=== PATIENT | female | born 1975 | race Caucasian/White ===

== ENCOUNTER 2021-02-07 16:49 | Observation (INO) ==
[2021-02-07] MEDS ORDERED: Melatonin 3 MG TABLET PO PRN (23:48)
[2021-02-07] MEDS ORDERED: Naloxone 0.4 MG/ML INJ IVP PRN (23:48)
[2021-02-08] MEDS: 0.9 % Sodium Chloride 1,000 ML IVC SCH ×2 (06:05→14:39)
[2021-02-08 06:59] LABS: Basophils % 0.3 %; Eosinophils # 0.1 K/mcL (0.0-0.6); Eosinophils % 0.7 %; Hematocrit 36.3 % (35.3-44.9); Hemoglobin 11.2 g/dL (11.5-15.4); Immature Granulocytes % 0.9 % (0-4); Lymphocytes # 2.1 K/mcL (0.6-4.6); Lymphocytes % 17.7 %; Mean Corpuscular HGB Conc 30.9 g/dL (31.6-35.5); Mean Corpuscular Hemoglobin 27.4 pg (28.0-33.3); Mean Corpuscular Volume 88.8 fL (83.0-100.0); Mean Platelet Volume 8.7 fL (9.4-12.4); Monocytes # 0.6 K/mcL (0.0-1.3); Monocytes % 5.1 %; Neutrophils # 9.1 K/mcL (1.6-8.9); Platelet Count 452 K/mcL (140-400); Red Blood Count 4.09 M/mcL (3.82-4.97); Red Cell Distribution Width 15.4 % (11.5-14.5); Segmented Neutrophils % 75.3 %; White Blood Count 12.1 K/mcL (4.3-11.1)
[2021-02-08 07:15] LABS: Alanine Aminotransferase 5 Units/L (7-52); Albumin 3.8 g/dL (3.5-5.7); Albumin/Globulin Ratio 1.1 (1.1-2.2); Alkaline Phosphatase 69 Units/L (34-104); Aspartate Amino Transferase 7 Units/L (13-39); BUN/Creatinine Ratio 27 (6-26); Bilirubin,Total 0.3 mg/dL (0.3-1.0); Blood Urea Nitrogen 12 mg/dL (6-20); Calcium 9.7 mg/dL (8.6-10.3); Carbon Dioxide 21 mEq/L (23-29); Chloride 104 mEq/L (98-107); Globulin 3.6 g/dL (2.4-3.5); Glucose 89 mg/dL (70-105); Magnesium 1.9 mg/dL (1.6-2.6); Osmolality,Calculated 279 (280-300); Phosphorous 4.4 mg/dL (2.7-4.5); Potassium 4.2 mEq/L (3.5-5.1); Sodium 135 mEq/L (136-145); Total Protein 7.4 g/dL (6.4-8.9); eGFR For African Americans > 60 (> 60); eGFR For Non-African Americans > 60 (> 60)
[2021-02-08] MEDS ORDERED: *HR* HYDROmorphone (PF) 1 MG/ML SYRINGE IVP PRN (12:24)
[2021-02-08] MEDS: Nicotine 21 MG PATCH.TD24 TD SCH (12:54)
[2021-02-08 15:22] LABS: Influenza A PCR Negative (Negative); Influenza B PCR Negative (Negative); Resp. Syncytial Virus PCR Negative (Negative)
[2021-02-08] MEDS: Ondansetron 4 MG/2 ML VIAL IVP PRN (15:44)
[2021-02-08 15:50] LABS: SARS-CoV-2 by PCR (In House) Negative (Negative)
[2021-02-08] MEDS: Pantoprazole 40 MG VIAL IVP SCH (18:17)
[2021-02-08] MEDS: *HR* HYDROmorphone (PF) 1 MG/ML SYRINGE IVP PRN ×2 (18:18→23:45)
[2021-02-08] MEDS: MetroNIDAZOLE 500 MG/100 ML 500 MG/100 ML BAG IVPB SCH (23:28)
[2021-02-08] MEDS: MethylPREDNISolone 40 MG/ML VIAL IVP SCH (23:29)
[2021-02-09] MEDS ORDERED: MethylPREDNISolone 40 MG/ML VIAL IM SCH
[2021-02-09] MEDS: Ondansetron 4 MG/2 ML VIAL IVP PRN (01:10)
[2021-02-09] MEDS: 0.9 % Sodium Chloride 1,000 ML IVC SCH ×2 (01:11→14:16)
[2021-02-09] MEDS: Pantoprazole 40 MG VIAL IVP SCH ×2 (05:13→17:36)
[2021-02-09 05:32] LABS: Hematocrit 33.1 % (35.3-44.9); Hemoglobin 10.3 g/dL (11.5-15.4); Mean Corpuscular HGB Conc 31.1 g/dL (31.6-35.5); Mean Corpuscular Hemoglobin 27.7 pg (28.0-33.3); Mean Platelet Volume 8.5 fL (9.4-12.4); Platelet Count 431 K/mcL (140-400); Red Blood Count 3.72 M/mcL (3.82-4.97); Red Cell Distribution Width 15.1 % (11.5-14.5); White Blood Count 9.9 K/mcL (4.3-11.1)
[2021-02-09 05:54] LABS: Alanine Aminotransferase 4 Units/L (7-52); Albumin 3.4 g/dL (3.5-5.7); Albumin/Globulin Ratio 1.1 (1.1-2.2); Alkaline Phosphatase 60 Units/L (34-104); Aspartate Amino Transferase 6 Units/L (13-39); BUN/Creatinine Ratio 30 (6-26); Bilirubin,Total 0.2 mg/dL (0.3-1.0); Blood Urea Nitrogen 14 mg/dL (6-20); Carbon Dioxide 21 mEq/L (23-29); Chloride 107 mEq/L (98-107); Globulin 3.1 g/dL (2.4-3.5); Glucose 102 mg/dL (70-105); Osmolality,Calculated 283 (280-300); Potassium 4.4 mEq/L (3.5-5.1); Sodium 136 mEq/L (136-145); Total Protein 6.5 g/dL (6.4-8.9); eGFR For African Americans > 60 (> 60); eGFR For Non-African Americans > 60 (> 60)
[2021-02-09] MEDS: MethylPREDNISolone 40 MG/ML VIAL IVP SCH ×3 (09:09→22:56)
[2021-02-09] MEDS: Nicotine 21 MG PATCH.TD24 TD SCH (09:09)
[2021-02-09] MEDS: MetroNIDAZOLE 500 MG/100 ML 500 MG/100 ML BAG IVPB SCH ×3 (09:10→22:57)
[2021-02-09 14:08] LABS: Hepatitis B Surface Antigen Nonreactive (Nonreactive)
[2021-02-09 14:37] LABS: Hepatitis B Core IgM Nonreactive (Nonreactive); Hepatitis C Virus Antibody Nonreactive (Nonreactive)
[2021-02-09 14:39] LABS: Hepatitis A Antibody IgM Nonreactive (Nonreactive)
[2021-02-10] MEDS: Pantoprazole 40 MG VIAL IVP SCH (05:25)
[2021-02-10] MEDS ORDERED: Acetaminophen 325 MG TABLET PO PRN (05:43)
[2021-02-10 06:33] VITALS: BP 134/88
[2021-02-10 06:53] LABS: Hematocrit 31.4 % (35.3-44.9); Hemoglobin 10.2 g/dL (11.5-15.4); Mean Corpuscular HGB Conc 32.5 g/dL (31.6-35.5); Mean Corpuscular Hemoglobin 28.1 pg (28.0-33.3); Mean Corpuscular Volume 86.5 fL (83.0-100.0); Mean Platelet Volume 8.5 fL (9.4-12.4); Platelet Count 454 K/mcL (140-400); Red Blood Count 3.63 M/mcL (3.82-4.97); Red Cell Distribution Width 14.6 % (11.5-14.5); White Blood Count 5.6 K/mcL (4.3-11.1)
[2021-02-10 07:16] LABS: Alanine Aminotransferase 4 Units/L (7-52); Albumin 3.7 g/dL (3.5-5.7); Albumin/Globulin Ratio 1.2 (1.1-2.2); Alkaline Phosphatase 62 Units/L (34-104); Aspartate Amino Transferase 6 Units/L (13-39); BUN/Creatinine Ratio 27 (6-26); Bilirubin,Total 0.2 mg/dL (0.3-1.0); Blood Urea Nitrogen 13 mg/dL (6-20); Calcium 9.6 mg/dL (8.6-10.3); Carbon Dioxide 25 mEq/L (23-29); Chloride 106 mEq/L (98-107); Globulin 3.2 g/dL (2.4-3.5); Glucose 139 mg/dL (70-105); Osmolality,Calculated 290 (280-300); Sodium 139 mEq/L (136-145); Total Protein 6.9 g/dL (6.4-8.9); eGFR For African Americans > 60 (> 60); eGFR For Non-African Americans > 60 (> 60)
[2021-02-10] MEDS: MetroNIDAZOLE 500 MG/100 ML 500 MG/100 ML BAG IVPB SCH (08:48)
[2021-02-10] MEDS: MethylPREDNISolone 40 MG/ML VIAL IVP SCH (08:49)
[2021-02-10] MEDS: Nicotine 21 MG PATCH.TD24 TD SCH (08:52)
[2021-02-12 11:07] LABS: QuantiFERON NIL 0.01 IU/mL; QuantiFERON-TB Gold In-Tube NEGATIVE (Negative)
== END 2021-02-10 11:20 | disposition home or self-care (01) ==
LOC: 3BNU → SUATTDRO 20:42
PROVIDERS: ADMIT Internal Medicine; ATTEND Registered Nurse

== ENCOUNTER 2021-03-30 03:29 | Inpatient (IN) ==
[2021-03-30] MEDS ORDERED: Acetaminophen IV 1,000 MG/100 ML BAG IVPB ONE (07:42)
[2021-03-30] MEDS ORDERED: Lidocaine -MPF 4% 5 ML AMPUL ONE (07:53)
[2021-03-30] MEDS ORDERED: Ondansetron 4 MG/2 ML VIAL ONE (08:02)
[2021-03-30] MEDS ORDERED: Lidocaine -MPF 2% 2 ML VIAL ONE ×2 (08:02→08:09)
[2021-03-30] MEDS ORDERED: *HR* Rocuronium Bromide 50 MG/5 ML VIAL ONE (08:02)
[2021-03-30] MEDS ORDERED: *HR* Succinylcholine 200 MG/10 ML VIAL IVP ONE (08:02)
[2021-03-30] MEDS ORDERED: *HR* Magnesium Sulfate 1 GM/2 ML VIAL ONE (08:02)
[2021-03-30] MEDS ORDERED: Sugammadex Sodium 200 MG/2 ML VIAL IV ONE (08:02)
[2021-03-30] MEDS ORDERED: *HR* HYDROMORPHONE 2 MG/ML VIAL ONE (08:03)
[2021-03-30] MEDS ORDERED: *HR* FentaNYL (PF) 100 MCG/2 ML VIAL ONE (08:03)
[2021-03-30] MEDS ORDERED: *HR* Midazolam HCl 2 MG/2 ML VIAL ONE (08:03)
[2021-03-30] MEDS ORDERED: Ondansetron 4 MG/2 ML VIAL IVP PRN ×2 (08:08→11:26)
[2021-03-30] MEDS ORDERED: Bupivacaine-MPF 0.25% 10 ML VIAL ONE (08:11)
[2021-03-30] MEDS ORDERED: Ringers Solution, Lactated 1,000 ML IVC SCH (08:15)
[2021-03-30] MEDS ORDERED: cefOXitin 2,000 MG in Water for inj. (sterile) 20 ML IVP ONE (08:40)
[2021-03-30] MEDS ORDERED: CefOXitin 2,000 MG VIAL ONE (08:44)
[2021-03-30] MEDS ORDERED: Ketorolac 30 MG/ML VIAL ONE (09:16)
[2021-03-30] MEDS ORDERED: CefOXitin 1,000 MG VIAL ONE (09:39)
[2021-03-30] MEDS ORDERED: *HR* Labetalol 20 MG/4 ML SYRINGE IVP ONE (09:53)
[2021-03-30] MEDS: *HR* HYDROmorphone PF 0.5 MG/0.5 ML SYRINGE IVP PRN ×3 (10:22→10:40)
[2021-03-30] MEDS ORDERED: *HR* Metoprolol 5 MG/5 ML VIAL IVP PRN (11:26)
[2021-03-30] MEDS: Ringers Solution, Lactated 1,000 ML IVC SCH ×2 (14:20→22:56)
[2021-03-30] MEDS: *HR* OxyCODONE/APAP 5/325 TABLET PO PRN ×2 (15:13→20:15)
[2021-03-30] MEDS: cefOXitin 2,000 MG in Water for inj. (sterile) 20 ML IVP SCH ×2 (16:10→22:54)
[2021-03-30] MEDS: Nicotine 21 MG PATCH.TD24 TD SCH (20:15)
[2021-03-30] MEDS ORDERED: Melatonin 3 MG TABLET PO ONE (22:41)
[2021-03-31] MEDS: *HR* OxyCODONE/APAP 5/325 TABLET PO PRN ×3 (02:50→12:42)
[2021-03-31 05:53] LABS: Alanine Aminotransferase 4 Units/L (7-52); Albumin 3.3 g/dL (3.5-5.7); Albumin/Globulin Ratio 1.3 (1.1-2.2); Alkaline Phosphatase 56 Units/L (34-104); Aspartate Amino Transferase 8 Units/L (13-39); BUN/Creatinine Ratio 14 (6-26); Bilirubin,Total 0.2 mg/dL (0.3-1.0); Blood Urea Nitrogen 6 mg/dL (6-20); Calcium 8.7 mg/dL (8.6-10.3); Carbon Dioxide 23 mEq/L (23-29); Chloride 110 mEq/L (98-107); Globulin 2.5 g/dL (2.4-3.5); Glucose 93 mg/dL (70-105); Magnesium 1.9 mg/dL (1.6-2.6); Osmolality,Calculated 285 (280-300); Phosphorous 3.8 mg/dL (2.7-4.5); Potassium 4.2 mEq/L (3.5-5.1); Sodium 139 mEq/L (136-145); Total Protein 5.8 g/dL (6.4-8.9); eGFR For African Americans > 60 (> 60); eGFR For Non-African Americans > 60 (> 60)
[2021-03-31 06:58] VITALS: O2SAT 96
[2021-03-31] MEDS: Nicotine 21 MG PATCH.TD24 TD SCH (07:58)
[2021-03-31] MEDS: cefOXitin 2,000 MG in Water for inj. (sterile) 20 ML IVP SCH (07:59)
[2021-03-31] MEDS ORDERED: BUDESONIDE 3 MG PO SCH ×2 (09:00)
[2021-03-31] MEDS ORDERED: Folic Acid 1 MG TABLET PO SCH (09:00)
[2021-03-31 09:57] LABS: Basophils % 0.3 %; Eosinophils # 0.1 K/mcL (0.0-0.6); Hematocrit 36.6 % (35.3-44.9); Hemoglobin 11.6 g/dL (11.5-15.4); Immature Granulocytes % 0.5 % (0-4); Lymphocytes # 1.6 K/mcL (0.6-4.6); Lymphocytes % 18.2 %; Mean Corpuscular HGB Conc 31.7 g/dL (31.6-35.5); Mean Corpuscular Volume 88.2 fL (83.0-100.0); Mean Platelet Volume 9.2 fL (9.4-12.4); Monocytes # 0.6 K/mcL (0.0-1.3); Monocytes % 6.6 %; Neutrophils # 6.4 K/mcL (1.6-8.9); Platelet Count 297 K/mcL (140-400); Red Blood Count 4.15 M/mcL (3.82-4.97); Red Cell Distribution Width 14.6 % (11.5-14.5); Segmented Neutrophils % 73.4 %; White Blood Count 8.7 K/mcL (4.3-11.1)
[2021-03-31 11:02] VITALS: BP 127/82; PULSE 75; TEMP 98.4
== END 2021-03-31 14:00 | disposition home or self-care (01) | DRG 337 ==
LOC: 3BNU → SUATTDRO 18:04
PROVIDERS: ADMIT Student in an Organized Health Care Education/Training Program; ATTEND Internal Medicine
PROC: GENAPPY (ICD-10-PCS; 2021-03-30 09:00)